=== PATIENT | male | born 1965 | race Caucasian/White ===

== ENCOUNTER 2017-12-28 09:25 | Inpatient (IN) | payer OTHER ==
[~2017-12-28] VITALS: Ht 175.2 cm; Wt 99.8 kg
[2017-12-28] VITALS (8 sets, daily range): BP systolic 130–154; BP diastolic 90–116
--- NOTE | ~2017-12-28 | ST ---
[place], [place] EXERCISE STRESS TEST REPORT [id number] UNIT #: [id number] ROOM: 406 DOCTOR: DENISSE PEGUERO MD BIRTHDATE: [birth year] DOS: 12/29/2017 LEXISCAN STRESS EKG REPORT REFERRING PHYSICIAN: Dr. Pisano. INDICATION: Central chest pain and left arm pain. The patient underwent Lexiscan stress EKG. The patient's baseline EKG showed normal sinus ____ nonspecific ST-T wave changes. The patient's baseline heart rate 69 beats per minute with blood pressure 132/90. The patient's peak heart was 115 with the blood pressure of 140/90. The patient had no chest pain, no EKG changes and no ischemic changes. SUMMARY OF FINDINGS: Unremarkable Lexiscan stress EKG. Please see separate report for perfusion scan results. DENISSE PEGUERO MD CM:STRESS:EXERCISE STRESS TEST REPORT [id number] DENISSE PEGUERO MD
[2017-12-28] MEDS ORDERED: LISINOPRIL10 M1 PO (09:31)
[2017-12-28 09:44] LABS: BASO # 0.1 10*3/uL (0.0-0.1); BASO % 0.7 % (0.0-1.0); EOS # 0.1 10*3/uL (0.0-0.4); EOS % 1.5 % (1.0-4.0); HEMOGLOBIN 15.7 g/dl (14.0-18.0); LYMPH # 2.6 10*3/uL (1.3-4.4); LYMPH % 28.5 % (27.0-41.0); MEAN CELL VOLUME 85.6 fl (80.0-94.0); MEAN CORPUSCULAR HGB 30.5 pg (27.0-31.0); MEAN CORPUSCULAR HGB CONC 35.7 g/dl (33.0-37.0); MEAN PLATELET VOLUME 9.9 fl (9.6-12.3); MONO % 10.8 % (3.0-9.0); NEUT # 5.3 10*3/uL (2.3-7.9); PLATELET COUNT AUTOMATED 216 10*3/uL (130-400); RED BLOOD COUNT 5.14 10*6/uL (4.50-5.90); RED CELL DISTRI WIDTH 12.8 % (0-14.5); WHITE BLOOD COUNT 9.2 10*3/uL (4.8-10.8)
[2017-12-28 09:53] LABS: ACT PARTIAL THROMBO TIME 25.8 SECONDS (20.8-31.5)
[2017-12-28 10:03] LABS: ALBUMIN 3.6 gm/dl (3.1-4.5); ALKALINE PHOSPHATASE 59 U/L (45-117); BUN 9 mg/dl (7-24); CHLORIDE 106 mmol/L (98-107); CREATININE 1.21 mg/dL (0.70-1.30); SGOT/AST 19 IU/L (3-35); SGPT/ALT 45 U/L (12-78); SODIUM 140 mmol/L (136-145); TOTAL PROTEIN 7.7 gm/dL (6.4-8.2)
[2017-12-28 10:05] LABS: TROPONIN I < 0.015 ng/ml (<0.045)
[2017-12-29] VITALS: BP 151/90
[2017-12-29 06:59] LABS: BASO # 0.1 10*3/uL (0.0-0.1); BASO % 0.6 % (0.0-1.0); EOS # 0.2 10*3/uL (0.0-0.4); EOS % 1.6 % (1.0-4.0); HEMATOCRIT 44.5 % (42.0-52.0); HEMOGLOBIN 15.6 g/dl (14.0-18.0); LYMPH # 2.6 10*3/uL (1.3-4.4); LYMPH % 25.5 % (27.0-41.0); MEAN CELL VOLUME 86.1 fl (80.0-94.0); MEAN CORPUSCULAR HGB 30.2 pg (27.0-31.0); MEAN CORPUSCULAR HGB CONC 35.1 g/dl (33.0-37.0); MEAN PLATELET VOLUME 10.4 fl (9.6-12.3); MONO # 1.1 10*3/uL (0.1-1.0); MONO % 10.4 % (3.0-9.0); NEUT # 6.3 10*3/uL (2.3-7.9); NEUT % 61.2 % (47.0-73.0); PLATELET COUNT AUTOMATED 222 10*3/uL (130-400); RED BLOOD COUNT 5.17 10*6/uL (4.50-5.90); RED CELL DISTRI WIDTH 13.2 % (0-14.5); WHITE BLOOD COUNT 10.2 10*3/uL (4.8-10.8)
[2017-12-29 07:14] LABS: BUN 11 mg/dl (7-24); CHLORIDE 105 mmol/L (98-107); POTASSIUM 3.8 mmol/L (3.5-5.1); SODIUM 139 mmol/L (136-145)
[2017-12-29 07:27] LABS: ALBUMIN 3.5 gm/dl (3.1-4.5); ALKALINE PHOSPHATASE 57 U/L (45-117); CHOLESTEROL 211 mg/dL (<200); CREATININE 1.09 mg/dL (0.70-1.30); FREE T4 1.11 ng/dl (0.76-1.46); HDL CHOLESTEROL 34 mg/dl (40-60); LDL CHOLESTEROL 133 mg/dL (9-159); PHOSPHOROUS 3.7 mg/dL (2.5-4.9); SGOT/AST 21 IU/L (3-35); SGPT/ALT 45 U/L (12-78); TOTAL PROTEIN 7.7 gm/dL (6.4-8.2); TRIGLYCERIDES 218 mg/dl (<150); VLDL CHOLESTEROL 44 mg/dL (6-40)
[2017-12-29 07:47] LABS: ACT PARTIAL THROMBO TIME 25.9 SECONDS (20.8-31.5)
[2017-12-29 08:00] VITALS: BP 130/70
[2017-12-29 08:18] LABS: VITAMIN D, 25-HYDROXY 9.7 ng/mL (30-100)
[2017-12-29 12:00] VITALS: BP 128/99
[2017-12-29 12:40] VITALS: BP 110/70
[2017-12-29] MEDS ORDERED: SIMVASTATIN10 MG PO (15:55)
== END 2017-12-29 17:00 | disposition home or self-care (01) | DRG 313 ==
LOC: ED 09:25 → EDHOLD 12:18 → 4E 12:18
PROVIDERS: Emergency Medicine; Family Medicine
PROC: 4A02XM4 Measurement of Cardiac Total Activity, External Approach (ICD-10-PCS; principal; 2017-12-29)
PROC: 3E073KZ Introduction of Other Diagnostic Substance into Coronary Artery, Percutaneous Approach (ICD-10-PCS; principal; 2017-12-29)
DX: R07.89 Other chest pain (principal); I11.0 Hypertensive heart disease with heart failure; E83.41 Hypermagnesemia; I50.30 Unspecified diastolic (congestive) heart failure; D72.821 Monocytosis (symptomatic); R73.9 Hyperglycemia, unspecified; R73.03 Prediabetes; E55.9 Vitamin D deficiency, unspecified; E78.5 Hyperlipidemia, unspecified; Z78.9 Other specified health status; Z72.0 Tobacco use; Z71.6 Tobacco abuse counseling; Z79.899 Other long term (current) drug therapy; Z90.89 Acquired absence of other organs; Z82.49 Family history of ischemic heart disease and other diseases of the circulatory system

== ENCOUNTER 2018-02-22 06:56 | Inpatient (IN) | payer OTHER ==
[~2018-02-22] VITALS: Ht 175.3 cm; Wt 101.2 kg
[2018-02-22] VITALS (9 sets, daily range): BP systolic 110–142; BP diastolic 70–93
[~2018-02-22 06:56] MED LIST: LISINOPRIL10 M1 PO; SIMVASTATIN10 MG PO
[2018-02-22] MEDS ORDERED: ASPIRIN CHEWABL81 MG PO (07:10)
[2018-02-22] MEDS ORDERED: VITAMIN D22000 UNIT PO (07:10)
[2018-02-22 07:52] LABS: BASO # 0.1 10*3/uL (0.0-0.1); BASO % 0.9 % (0.0-1.0); EOS # 0.1 10*3/uL (0.0-0.4); EOS % 2.2 % (1.0-4.0); HEMOGLOBIN 14.6 g/dl (14.0-18.0); LYMPH # 1.5 10*3/uL (1.3-4.4); LYMPH % 27.9 % (27.0-41.0); MEAN CELL VOLUME 87.1 fl (80.0-94.0); MEAN CORPUSCULAR HGB 30.3 pg (27.0-31.0); MEAN CORPUSCULAR HGB CONC 34.8 g/dl (33.0-37.0); MEAN PLATELET VOLUME 9.6 fl (9.6-12.3); MONO # 0.6 10*3/uL (0.1-1.0); MONO % 11.4 % (3.0-9.0); NEUT # 3.2 10*3/uL (2.3-7.9); NEUT % 57.1 % (47.0-73.0); PLATELET COUNT AUTOMATED 194 10*3/uL (130-400); RED BLOOD COUNT 4.82 10*6/uL (4.50-5.90); RED CELL DISTRI WIDTH 12.5 % (0-14.5); WHITE BLOOD COUNT 5.5 10*3/uL (4.8-10.8)
[2018-02-22 08:17] LABS: ALBUMIN 3.6 gm/dl (3.1-4.5); ALKALINE PHOSPHATASE 50 U/L (45-117); BUN 17 mg/dl (7-24); CHLORIDE 107 mmol/L (98-107); CREATININE 1.17 mg/dL (0.70-1.30); POTASSIUM 3.6 mmol/L (3.5-5.1); SGOT/AST 17 IU/L (3-35); SGPT/ALT 37 U/L (12-78); SODIUM 140 mmol/L (136-145); TOTAL PROTEIN 7.3 gm/dL (6.4-8.2); TROPONIN I 0.016 ng/ml (<0.045)
[2018-02-23] VITALS: BP 138/92
[2018-02-23 06:44] LABS: BUN 14 mg/dl (7-24); CHLORIDE 106 mmol/L (98-107); CHOLESTEROL 196 mg/dL (<200); CREATININE 0.98 mg/dL (0.70-1.30); HDL CHOLESTEROL 36 mg/dl (40-60); LDL CHOLESTEROL 127 mg/dL (9-159); PHOSPHOROUS 3.3 mg/dL (2.5-4.9); POTASSIUM 3.9 mmol/L (3.5-5.1); SODIUM 138 mmol/L (136-145); TRIGLYCERIDES 166 mg/dl (<150); VLDL CHOLESTEROL 33 mg/dL (6-40)
[2018-02-23 06:46] LABS: BASO # 0.1 10*3/uL (0.0-0.1); BASO % 0.8 % (0.0-1.0); EOS # 0.2 10*3/uL (0.0-0.4); EOS % 2.1 % (1.0-4.0); HEMOGLOBIN 15.1 g/dl (14.0-18.0); LYMPH # 2.3 10*3/uL (1.3-4.4); LYMPH % 31.4 % (27.0-41.0); MEAN CELL VOLUME 87.3 fl (80.0-94.0); MEAN CORPUSCULAR HGB CONC 34.3 g/dl (33.0-37.0); MEAN PLATELET VOLUME 9.7 fl (9.6-12.3); MONO # 0.8 10*3/uL (0.1-1.0); MONO % 10.4 % (3.0-9.0); NEUT % 54.8 % (47.0-73.0); PLATELET COUNT AUTOMATED 202 10*3/uL (130-400); RED BLOOD COUNT 5.04 10*6/uL (4.50-5.90); RED CELL DISTRI WIDTH 12.5 % (0-14.5); WHITE BLOOD COUNT 7.3 10*3/uL (4.8-10.8)
[2018-02-23 08:00] VITALS: BP 120/80
[2018-02-23 11:51] VITALS: BP 133/93
[2018-02-23 15:54] VITALS: BP 125/96
[2018-02-23] MEDS ORDERED: ATORVASTATIN CA40 M1 PO (17:09)
== END 2018-02-23 17:45 | disposition home or self-care (01) | DRG 313 ==
LOC: ED 06:56 → 5E 10:39 → EDHOLD 10:39 → 5E 11:03
PROVIDERS: Emergency Medicine; Student in an Organized Health Care Education/Training Program
DX: R07.9 Chest pain, unspecified (principal); I11.0 Hypertensive heart disease with heart failure; I50.30 Unspecified diastolic (congestive) heart failure; R00.1 Bradycardia, unspecified; E66.09 Other obesity due to excess calories; E55.9 Vitamin D deficiency, unspecified; D72.821 Monocytosis (symptomatic); E78.5 Hyperlipidemia, unspecified; Z82.49 Family history of ischemic heart disease and other diseases of the circulatory system; Z83.6 Family history of other diseases of the respiratory system; Z79.82 Long term (current) use of aspirin; Z79.899 Other long term (current) drug therapy; Z68.32 Body mass index [BMI] 32.0-32.9, adult

== ENCOUNTER → 2019-12-19 | Outpatient (CLI) | payer OTHER ==
[~2019-12-19] MED LIST changes: +ASPIRIN CHEWABL81 MG PO; +ATORVASTATIN CA40 M1 PO; +BRILINTA90 M1 PO; -LISINOPRIL10 M1 PO; +LISINOPRIL20 MG PO; +LOPRESSOR25 MG PO; +VITAMIN D22000 UNIT PO
--- NOTE | 2019-12-19 07:15 | NUR ---
INFORMED SIGNED CONSENT OBTAINED FOR CGXT WITH DR OCONNOR. RESTING EKG SINUS BRADYCARDIA Q WAVE II III AVF, EARLY REPOLARIZATION HR 54 BP 112/62 IN SUPINE POSITION, STANDING HR 58 BP 116/70. PT COMPLETED 5:30 OF A 2 MIN CHINTAN PROTOCOL WITH PT COMPLETING 1:30 OF STAGE III AT 3.4 MPH AND A 14% GRADE. PT REACHED A PEAK HR OF 146 WHICH REPRESENTS 87% OF PREDICTED MAXIMUM AND A PEAK BP OF 174/90. NO ARRHYTHMIAS NOTED, NO ST CHANGES SEEN, TEST TERMINATED DUE TO FATIGUE. LAST RECOVERY HR OF 84 BP 130/80.
== END | disposition home or self-care (01) ==
LOC: CARD 05:24
DX: I20.9 Angina pectoris, unspecified (principal)

== ENCOUNTER 2022-01-05 14:17 | Emergency (ER) | payer OTHER ==
[~2022-01-05] VITALS: Ht 175.2 cm; Wt 104.3 kg
[2022-01-05 14:51] LABS: BASO # 0.1 10*3/uL (0.0-0.1); BASO % 0.7 % (0.0-1.0); EOS # 0.1 10*3/uL (0.0-0.4); EOS % 0.8 % (1.0-4.0); HEMATOCRIT 52.4 % (42.0-52.0); LYMPH # 1.8 10*3/uL (1.3-4.4); LYMPH % 21.4 % (27.0-41.0); MEAN CORPUSCULAR HGB 30.2 pg (27.0-31.0); MEAN CORPUSCULAR HGB CONC 34.7 g/dl (33.0-37.0); MEAN PLATELET VOLUME 10.2 fl (9.6-12.3); MONO # 0.8 10*3/uL (0.1-1.0); MONO % 9.1 % (3.0-9.0); NEUT # 5.7 10*3/uL (2.3-7.9); NEUT % 67.5 % (47.0-73.0); PLATELET COUNT AUTOMATED 236 10*3/uL (130-400); RED BLOOD COUNT 6.02 10*6/uL (4.50-5.90); RED CELL DISTRI WIDTH 12.9 % (0-14.5); WHITE BLOOD COUNT 8.5 10*3/uL (4.8-10.8)
[2022-01-05 15:06] LABS: INTERNATIONAL NORM RATIO 1.1 (2.0-3.5)
[2022-01-05 15:08] LABS: ALKALINE PHOSPHATASE 75 U/L (45-117); BUN 10 mg/dl (7-24); CHLORIDE 104 mmol/L (98-107); CREATININE 1.44 mg/dL (0.70-1.30); POTASSIUM 3.7 mmol/L (3.5-5.1); SGOT/AST 46 IU/L (3-35); SGPT/ALT 77 U/L (12-78); SODIUM 136 mmol/L (136-145); TOTAL PROTEIN 8.5 gm/dL (6.4-8.2)
== END 2022-01-05 15:13 | disposition short-term general hospital (02) ==
LOC: ED 14:17
PROVIDERS: Emergency Medicine
DX: I21.02 ST elevation (STEMI) myocardial infarction involving left anterior descending coronary artery (principal); F17.220 Nicotine dependence, chewing tobacco, uncomplicated; Z79.899 Other long term (current) drug therapy; Z90.89 Acquired absence of other organs; Z98.890 Other specified postprocedural states

== ENCOUNTER → 2022-03-02 | Outpatient (CLI) | payer OTHER ==
[~2022-03-02] MED LIST changes: +ASPIRIN81 M1 PO; +COREG6.25 MG PO; +DIOVAN40 MG PO; +LIPITOR80 MG PO
[2022-03-02 10:34] LABS: CHOLESTEROL 129 mg/dL (<200); SGOT/AST 17 IU/L (3-35); SGPT/ALT 29 U/L (12-78); TRIGLYCERIDES 104 mg/dl (<150)
[2022-03-02 10:36] LABS: LDL CHOLESTEROL 66 mg/dL (9-159)
== END | disposition home or self-care (01) ==
LOC: LAB 00:11 → CARD 09:00
PROVIDERS: ATTEND Internal Medicine Cardiovascular Disease
DX: I25.10 Atherosclerotic heart disease of native coronary artery without angina pectoris (principal); E78.5 Hyperlipidemia, unspecified; I21.02 ST elevation (STEMI) myocardial infarction involving left anterior descending coronary artery

== ENCOUNTER → 2022-04-07 | Outpatient (CLI) | payer OTHER | END | disposition home or self-care (01) | LOC: CARD 03-17 13:00 | PROVIDERS: ATTEND Internal Medicine Cardiovascular Disease | DX: I08.0 Rheumatic disorders of both mitral and aortic valves (principal); I25.10 Atherosclerotic heart disease of native coronary artery without angina pectoris; I21.02 ST elevation (STEMI) myocardial infarction involving left anterior descending coronary artery; E78.5 Hyperlipidemia, unspecified ==

== ENCOUNTER → 2022-05-14 | Outpatient (CLI) | payer OTHER ==
[2022-05-17 15:06] LABS: FREE PSA 0.776 ng/mL (.)
== END | disposition home or self-care (01) ==
LOC: LAB 09:44
PROVIDERS: ATTEND Urology
DX: N40.1 Benign prostatic hyperplasia with lower urinary tract symptoms (principal)